=== PATIENT | male | born 1940 | race Two or more races ===

== ENCOUNTER 2024-11-19 08:05 | Emergency (ER) | payer OTHER ==
--- OUTSIDE RECORDS SUMMARY | 2024-11-19 08:09 | XMS REPORT | Continuity of Care Document ---
Author Name Unknown Address [address] [place] [address] [address] [place] [address] [facility] Address [address] [place] [address] Care Team Providers Care Commercial Housekeeper Name Role Phone WADE BAPTISTE Attending Clinician Un available ANGELICA_PFAlfreda_Tonny_Wu Attending Clinician Unavailable [email or web address] Admitting Clinician Unavailable Payers Payer Name Policy Type Policy Number Effective Date Expirati on Date Source [employer] (MEDICARE REPLACEMENT PPO) [id number] 2022 00:00:00 Social History Smoking Status Start Date Stop Date Source Never Smoker [facility] Medications Ordered Medication Name Filled Medication Name Start Date Stop Date Current Medication? Ordering Clinician Indication Dosage Frequency Signature (SIG) Comments Components Source azithromyci n 250 mg tablet TAKE 2 TABLETS (500 MG) BY ORAL ROUTE ONCE DAILY FOR 1 DAY THEN 1 TABLET (250 MG) BY ORAL ROUTE ONCE DAILY FOR 4 DAYS azithromyci n 250 mg tablet TAKE 2 TABLETS (500 MG) BY ORAL ROUTE ONCE DAILY FOR 1 DAY THEN 1 TABLET (250 MG) BY ORAL ROUTE ONCE DAILY FOR 4 DAYS No azithromyc in 250 mg tablet TAKE 2 TABLETS (500 MG) BY ORAL ROUTE ONCE DAILY FOR 1 DAY THEN 1 TABLET (250 MG) BY ORAL ROUTE ONCE DAILY FOR 4 DAYS [facility] finasteride 1 mg tablet Take 1 tablet every day by oral route. finasteride 1 mg tablet Take 1 tablet every day by oral route. No 1 Q1D finasterid e 1 mg tablet Take 1 tablet every day by oral route. [facility] finasteride 5 mg tablet Take 1 tablet every day by oral route. finasteride 5 mg tablet Take 1 tablet every day by oral route. No 1 Q1D finasterid e 5 mg tablet Take 1 tablet every day by oral route. [facility] fluticasone 113 mcg-salmete rol 14 mcg/actuati on breath activated powdr Inhale 1 puff twice a day by inhalation route. fluticasone 113 mcg-salmete rol 14 mcg/actuati on breath activated powdr Inhale 1 puff twice a day by inhalation route. No 1puff(s ) BID fluticason e 113 mcg-salmet pretty 14 mcg/actuat ion breath activated powdr Inhale 1 puff twice a day by inhalation route. [facility] losartan 50 mg tablet Take 1 tablet every day by oral route. losartan 50 mg tablet Take 1 tablet every day by oral route. No 1 Q1D losartan 50 mg tablet Take 1 tablet every day by oral route. [facility] tamsulosin 0.4 mg capsule Take 1 capsule every day by oral route. tamsulosin 0.4 mg capsule Take 1 capsule every day by oral route. No 1capsul e(s) Q1D tamsulosin 0.4 mg capsule Take 1 capsule every day by oral route. [facility] Wixela Inhub 250 mcg-50 mcg/dose powder for inhalation 1 inhalation every 12 hours Wixela Inhub 250 mcg-50 mcg/dose powder for inhalation 1 inhalation every 12 hours No Wixela Inhub 250 mcg-50 mcg/dose powder for inhalation 1 inhalation every 12 hours [facility] Losartan Potassium Losartan Potassium Yes Odette Andra 1 tablet [facility] Tamsulosin HCl Tamsulosin HCl 08-18 00:00 :00 No Odette Harvey 1 capsule [facility] Vital Signs Vital Name Observation Time Observation Value Comments S ource Body Weight 2023-06-24 00:00:00 2256 [oz_av] [facility] BP Diastolic 2023-06-24 00:00:00 84 mm[Hg] [facility] BMI (Body Mass Index) 2023-06-24 00:00:00 22.1 kg/m2 [facility] BP Systolic 2023-06-24 00:00:00 118 mm[Hg] [facility] Height 2023-06-24 00:00:00 67 [in_i] [facility] Procedures Procedure Date / Time Performed Performing Clinicia n Source Hernia Repair 2022-01-13 00:00:00 [facility] Cataract Surgery [facility] Appendectomy [facility] Encounters Start Date/Time End Date/Time Encounter Type Admission Type Attending Clinicians Care Facility Care Department Encounter ID Source 2021-03-05 10:59:47 Outpatient PAULA BAPTISTE I [facility] [id number] [facility] 2023-06-24 00:00:00 2023-06-24 00:00:00 Natalie Lancaster MD: [address] [place] [address] [address], [address], [place] [address] , Ph. [facility] [address] Office* [id number] [facility] 2022-11-02 13:57:57 2022-11-02 13:57:57 Outpatient [facility] [id number] Marko Chong 2019-02-27 08:35:00 2019-02-27 08:35:00 [facility] [id number] [facility] 2019-02-20 10:00:00 2019-02-20 10:00:00 [facility] [id number] [facility] 2019-01-19 14:30:00 2019-01-19 14:30:00 [facility] [id number] [facility]
[2024-11-19 08:48] LABS: Absolute Lymphocytes (CBC) 2.2 K/uL (0.7-4.9); Hematocrit 41.7 % (39.6-49.0); Hemoglobin 14.0 g/dL (13.6-17.9); MCH 30.3 pg (27.0-35.0); MCHC 33.6 g/dL (32.0-36.0); MCV 90.2 fL (80-100); MPV 8.6 fL (7.6-11.3); Nucleated RBC Absolute Count 0.0 (0-0); Nucleated Red Blood Cells % 0.1 % (0-0); RBC Red Blood Cell Count 4.62 M/uL (4.33-5.43); White Blood Count 7.60 thou/uL (4.3-10.9)
[2024-11-19 08:49] LABS: PT Prothrombin Time 13.1 SECONDS (10-13.0); Protime INR 1.16
[2024-11-19] MEDS ORDERED: NA CHLORIDE 0.9% 500 ML ONE (09:09)
[2024-11-19 09:10] LABS: ALT/SGPT 18 U/L (16-61); Albumin 3.1 g/dL (3.4-5.0); Albumin/Globulin Ratio 0.9 (1.1-1.8); Alkaline Phosphatase 59 U/L (45-117); Anion Gap 9.5 mEq/L (5.0-15.0); BUN Blood Urea Nitrogen 18 mg/dL (7-18); Globulin 3.3 g/dL (2.3-3.5); Glucose Level 110 mg/dL (74-106); NT PRO-BNP 82 pg/mL (<450)
[2024-11-19 09:11] LABS: AST/SGOT 26 U/L (15-37); Bilirubin Indirect, Calculated 0.4 mg/dL (0.2-0.8); Potassium 3.5 mEq/L (3.5-5.1)
--- NOTE | 2024-11-19 09:11 | RAD REPORT ---
EXAMINATION: ONE VIEW CHEST XR CLINICAL INDICATION: CHEST PAIN TECHNIQUE: Frontal chest projection is submitted. Examination is limited by patient positioning and t echnique. COMPARISON: 08/05/2018 FINDINGS: The lungs are well inflated and clear. The heart is mildly enlarged in size. No displaced fractures i dentified. IMPRESSION: No acute intrathoracic abnormalities.
[2024-11-19 09:25] LABS: Troponin High Sensitivity 181.7 pg/mL (<58.9)
[2024-11-19] MEDS ORDERED: FENTANYL CITR 100 MCG/2 ML ONE (09:41)
[2024-11-19] MEDS ORDERED: NOREPINEPHRINE BITARTRATE/D5W 4 MG/250 ML BAG IV ONE (10:03)
--- NOTE | 2024-11-19 10:16 | RAD REPORT ---
EXAM: CTA of the chest, abdomen and pelvis HISTORY: Chest pain and back pain chest pain radiates to back COMPARISON: None TECHNIQUE: Multiple contiguous axial images were obtained a CTA of the chest and abdomen with contras t per aortic dissection protocol. This involves 3D reconstructions, MIPs, volume rendered images and/or shaded surface rendering. One or more of the following dose reduction techniques were used: Au tomated exposure control, adjustment of the mA and/or kV according to patient size, and/or iterative reconstruction. Unless otherwise specified, incidental findings do not require dedicated im aging follow-up. Sagittal and coronal 3-D MIP reformats were performed. FINDINGS: PULMONARY ARTERIES: Normal in caliber without filling defects to suggest pulmonary emboli. ASCENDING THORACIC AORTA: There is aneurysmal dilatation of the thoracic aorta with thoracic aortic acute dissection present involving the ascending and descending thoracic aorta. This extends to involve the root of the aorta with dissection extending into the great vessels resulting in the sever e narrowing of the right common carotid artery. DESCENDING THORACIC AORTA: Dilated with acute dissection present. ABDOMINAL AORTA: Continued dissection is present to the level of the bifurcation with dissection of t he left common iliac artery. Significant flow reduction is present in both internal iliac arteries. CELIAC TRUNK: Patent. SMA: Patent KAMILA: Patent RENAL ARTERIES: There is truncated appearance to the left renal artery with no flow seen distal to th e ostium due to the aortic dissection. MEDIASTINUM: Hemopericardium with cardiac tamponade present with high density blood product within th e pericardium measuring up to 4 cm. LUNGS: Emphysematous changes are present with mild dependent pulmonary edema. PLEURAL SPACE: No pleural effusion or pneumothorax. LIVER: Contrast is seen pooling in the dependent portion of the right lobe liver as well as a vena ca va indicating lack of cardiac output.. SPLEEN: Unremarkable. PANCREAS: Unremarkable. KIDNEYS: Unremarkable. ADRENALS: Unremarkable. BOWEL: Unremarkable. RETROPERITONEUM: No lymphadenopathy. BONES: Degenerative changes in the spine. ADDITIONAL FINDINGS: Prominent prostate gland projecting at bladder base. 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 Hemopericardium with cardiac tampona de present with lack of cardiac output suspected. Left renal artery shows no appreciable flow. 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 The findings were communicated with Mariusz Gandara MD at 11/19/2024 10:10 AM by telephone.
--- NOTE | 2024-11-19 10:49 | EDPHYS ---
Physician Documentation [facility] Name: Salena Pena Age: 84 yrs Sex: Male : 1940 Arrival Date: 11/19/2024 Time: 08:05 Bed 8 Private MD: ED Physician Mariusz Gandara HPI: 11/19 08:21 This 84 yrs old [place] Male presents to ER via Unassigned with complaints of Back rn Pain, Chest Pain. 08:28 Patient reports chest pain that radiates to the back, started this morning, shortly rn after carrying 2 jugs of water and loading washing machine. Patient reports feels tightening in his back, upper back. EMS reports initially blood pressure was a little bit low, also noted low oxygenation. EMS administered 2 doses of fentanyl with some improvement in the pain and administered 600 cc bolus with improvement of blood pressure. Patient denies any abdominal pain. No recent illness. No fever or chills. No cough.. Historical: - Allergies: 08:25 No Known Allergies; ph - Home Meds: 08:25 losartan oral [Active]; ph - PMHx: 08:25 Hypertensive disorder; ph - Immunization history:: Adult Immunizations unknown. - Infectious Disease History:: Denies. - Social history:: Smoking status: Patient denies any tobacco usage or history of. - Family history:: not pertinent. - Hospitalizations: : No recent hospitalization is reported. ROS: 08:28 Constitutional: Negative for fever, chills, and weight loss, Neck: Negative for injury, rn pain, and swelling, Cardiovascular: Positive for chest pain Respiratory: Negative for shortness of breath, cough, wheezing, and pleuritic chest pain, Abdomen/GI: Negative for abdominal pain, nausea, vomiting, diarrhea, and constipation, Back: Positive for back pain MS/Extremity: Negative for injury and deformity, Skin: Negative for injury, rash, and discoloration, Neuro: Negative for headache, weakness, numbness, tingling, and seizure, Exam: 08:28 Constitutional: This is a well developed, well nourished patient who is awake, alert, rn and in no acute distress. Head/Face: Normocephalic, atraumatic. Cardiovascular: Regular rate and rhythm. No pulse deficits. Respiratory: No increased work of breathing, no retractions or nasal flaring. Abdomen/GI: Soft, nontender, nondistended, no ecchymosis MS/ Extremity: Pulses equal, no cyanosis. Neurovascular intact. Full, normal range of motion. Equal circumference. Neuro: Awake and alert, GCS 15 Vital Signs: 08:21 BP 110 / 78; Pulse 72; Resp 16; Temp 97.5; Pulse Ox 94% on 2 lpm NC; Weight 76.2 kg; ph Height 5 ft. 8 in. ; 08:30 BP 91 / 56; Pulse 69; Resp 13; Pulse Ox 95% on 2 lpm NC; ph 09:00 BP 71 / 56; Pulse 75; Resp 15; Pulse Ox 94% on 2 lpm NC; ph 09:15 BP 92 / 64; Pulse 91; Resp 15; Pulse Ox 97% on 2 lpm NC; ph 09:25 BP 103 / 83; Pulse 88; Resp 20; Pulse Ox 95% on 2 lpm NC; ph 09:45 BP 93 / 54; Pulse 91; Resp 18; Pulse Ox 97% on 15 lpm Non-rebreather mask; ph 08:21 Body Mass Index 25.54 (76.20 kg, 172.72 cm) ph Procedures: 10:43 Intubation: Ventilated with 100% NRB prior to procedure. O2 saturation prior to television journalist was 70 %. Intubated orally using # 3 Marissa blade with 7.5 mm ETT. was successful on first attempt. Cricoid pressure applied during procedure. Tube secured with ETT wheeler at right side of mouth measured 23 cm at teeth. Placement verified by auscultating bilateral breath sounds, Patient tolerated well. Performed Needle pericardiocentesis. Patient cleansed with Betadine, ultrasound guidance utilized, identified pericardial effusion and used a 18-gauge 3-1/2 spinal needle with 30 cc syringe, space identified and aspirated 60 cc of dark blood with improvement of effusion noted following procedure.. MDM: 08:11 Medical Screening Exam initiated rn 09:27 ED course: Aspirin given by EMS, full dose prior to arrival. rn 09:42 ED course: Patient with elevated troponin, still ongoing chest pain, was initially rn helped with fentanyl, will redose fentanyl. Still high possibility of aortic etiology such as dissection given chest pain and back pain. Chest x-ray images negative for pneumonia pneumothorax or pulmonary edema per my interpretation. Cannot anticoagulate for possible NSTEMI until aorta is cleared. Anticipate transfer given no Disaster Director availability here, elevated troponin and worsening chest pain.. 10:43 Differential diagnosis: acute myocardial infarction, acute pericarditis, pulmonary rn embolus, thoracic aortic disection, unstable angina. The patient was not given aspirin in the Emergency Department. Administered by EMS. Data reviewed: vital signs, nurses notes. Data reviewed: lab test result(s), EKG, radiologic studies, CT scan, plain films, and as a result, I will admit patient. Independent interpretation of the following test(s) in the Emergency Department X-Ray: My interpretation is Chest x-ray images show enlarged heart but no pneumonia or pneumothorax per my interpretation. Care significantly affected by the following chronic conditions: Hypertension. Counseling: I had a detailed discussion with the patient and/or guardian regarding the historical points, exam findings, and any diagnostic results supporting the discharge/admit diagnosis, lab results, radiology results, the need for further work-up and treatment in the hospital, the need to transfer to another facility. ED course: Immediately upon return from CAT scan patient started to become bradycardic, ineffective respirations, intubated immediately without medication. While intubating I got a call from radiology reporting severe and total aortic dissection with hemopericardium and cardiac tamponade with evidence of lack of flow. Chest compressions started, I performed bedside emergent pericardiocentesis with removal of 60 cc of dark blood. Patient achieved ROSC after approximately 5 minutes of continued compressions and epinephrine following pericardiocentesis but briefly decompensated again into asystole and never regained pulse after that. Family updated as well as daughter who is a trauma surgeon at [employer] [facility] [employer] [facility] [employer] [facility] [employer].. 11/19 08:11 Order name: Basic Metabolic Panel; Complete Time: rn 11/19 08:11 Order name: CBC with Diff; Complete Time: : rn 11/19 08:11 Order name: LFT's; Complete Time: rn 11/19 08:11 Order name: NT PRO-BNP; Complete Time: rn 11/19 08:11 Order name: PT-INR; Complete Time: : rn 11/19 08:11 Order name: Troponin HS; Complete Time: rn 11/19 08:11 Order name: XRAY Chest (1 view); Complete Time: : rn 11/19 08:11 Order name: CT Aorta for Dissection; Complete Time: 10:22 rn 11/19 08:11 Order name: EKG; Complete Time: 08: rn 11/19 08:11 Order name: Cardiac monitoring; Complete Time: 08:27 rn 11/19 08:11 Order name: EKG - Nurse/Tech; Complete Time: 08:37 rn 11/19 08:11 Order name: IV Saline Lock; Complete Time: 08: rn 11/19 08:11 Order name: Labs collected and sent; Complete Time: 08: rn 11/19 08:11 Order name: O2 Per Protocol; Complete Time: 08: rn 11/19 08:11 Order name: O2 Sat Monitoring; Complete Time: 08: rn Administered Medications: 08:29 Drug: NS 0.9% IV 500 ml 500 ml IV at 1 bolus once; to be given as a bolus over 30 bp minutes Volume: 500 ml; Route: IV; Rate: 1 bolus; Site: left forearm; 10:58 Follow up: IV Status: Completed infusion bp 09:15 Drug: NS 0.9% IV 500 ml 500 ml IV at 1 bolus once; to be given as a bolus over 30 ph minutes Volume: 500 ml; Route: IV; Rate: 1 bolus; Site: left forearm; 10:58 Follow up: IV Status: Completed infusion bp 09:45 Drug: fentaNYL (PF) IVP 50 mcg IVP once Route: IVP; Site: left forearm; bp 10:59 Follow up: Response: No adverse reaction bp 10:00 Drug: EPINEPHrine 0.1mg/mL 1:10,000 1 mg IVP once Route: IVP; Site: left forearm; ph 10:05 Follow up: Response: Cardiac rhythm is unchanged ph 10:03 Drug: EPINEPHrine 0.1mg/mL 1:10,000 1 mg IVP once Route: IVP; Site: left forearm; ph 11:29 Follow up: Response: No adverse reaction; Cardiac rhythm is unchanged ph 10:10 Drug: EPINEPHrine 0.1mg/mL 1:10,000 1 mg IVP once Route: IVP; Site: left forearm; ph 11:30 Follow up: Response: No adverse reaction; Cardiac rhythm is unchanged ph 10:13 Drug: EPINEPHrine 0.1mg/mL 1:10,000 1 mg IVP once Route: IVP; Site: right jugular; ph 11:31 Follow up: Response: No adverse reaction; Cardiac rhythm is unchanged ph 10:15 Drug: EPINEPHrine 0.1mg/mL 1:10,000 1 mg IVP once Route: IVP; Site: right jugular; ph 11:32 Follow up: Response: No adverse reaction; Cardiac rhythm is unchanged ph 10:18 Drug: EPINEPHrine 0.1mg/mL 1:10,000 1 mg IVP once Route: IVP; Site: right jugular; ph 10:20 Follow up: Response: No adverse reaction; Cardiac rhythm changed ph 10:24 Drug: EPINEPHrine 0.1mg/mL 1:10,000 1 mg IVP once Route: IVP; Site: right jugular; ph 11:33 Follow up: Response: No adverse reaction; Cardiac rhythm is unchanged ph 10:27 Drug: EPINEPHrine 0.1mg/mL 1:10,000 1 mg IVP once Route: IVP; Site: right jugular; ph 11:34 Follow up: Response: No adverse reaction; Cardiac rhythm is unchanged ph 10:30 Drug: EPINEPHrine 0.1mg/mL 1:10,000 1 mg IVP once Route: IVP; Site: right jugular; ph 11:34 Follow up: Response: No adverse reaction ph 10:31 Drug: Sodium Bicarbonate 1 amp IVP once; (50 mL); equals 50 mEq Route: IVP; Site: right jugular; 11:35 Follow up: Response: No adverse reaction; Cardiac rhythm is unchanged ph 10:33 Drug: EPINEPHrine 0.1mg/mL 1:10,000 1 mg IVP once Route: IVP; Site: right jugular; ph 11:35 Follow up: Response: No adverse reaction; Cardiac rhythm is unchanged ph 10:58 CANCELLED (Patient ): epinephrine (pf)0.01 mcg/kg/min IV at Titrate See bp Administration Instructions; Standard concentration 4 mg / 250 mL D5W; Recommended max rate 2 mcg/kg/min; Titrate 0.01 mcg/kg/min as often as every 3 minutes to achieve goal [see titration policy]; Goal parameter MAP greater than 65 mmHg. Disposition: 10:47 Critical Care:. . rn Disposition Summary: 11/19/24 10:49 Patient Notes: Location: Home rn Pronouncing Physician: Mariusz Gandara rn Time of : 10:35 11/19/2024 rn Diagnosis - Thoracoabdominal aortic aneurysm, ruptured rn - Cardiac Tamponade learning and development officer time excluding procedures: 10:47 Critical care time: Bedside Care: 35 minutes, Family Intervention: 5 minutes. Total rn time: 40 minutes Signatures: Dispatcher [employer] EDMS Mariusz Gandara MD MD rn Hall, Patricia, RN RN ph Peltier, Brian, RN RN bp Corrections: (The following items were deleted from the chart) 10:56 10:30 Chest Single View ordered. EDAL EDMS 10:58 10:28 EPINEPHrine (PF) IV 0.01 mcg/kg/min IV at Titrate See Administration bp Instructions; Standard concentration 4 mg / 250 mL D5W; Recommended max rate 2 mcg/kg/min; Titrate 0.01 mcg/kg/min as often as every 3 minutes to achieve goal [see titration policy]; Goal parameter MAP greater than 65 mmHg. ordered. bp
--- NOTE | 2024-11-19 10:49 | ER ---
Nurse's Notes [facility] [place] Name: Salena Pena Age: 84 yrs Sex: Male : 1940 Arrival Date: 11/19/2024 Time: 08:05 Bed 8 Private MD: Diagnosis: Thoracoabdominal aortic aneurysm, ruptured;Cardiac Tamponade Presentation: 11/19 08:21 Chief complaint: EMS states: C/O back pain that "feels like the muscles are having a ph seizure", also reports midsternal chest pain and difficulty breathing. Received 324 ASA, 4 mg Zofran, 50 mcg Fentanyl x 2, reports that chest pain and SOB have improved, continues to c/o back pain. Coronavirus screen: At this time, the client does not indicate any symptoms associated with coronavirus-19. Ebola Screen: No symptoms or risks identified at this time. Initial Sepsis Screen: Does the patient meet any 2 criteria? No. Patient's initial sepsis screen is negative. Does the patient have a suspected source of infection? No. Patient's initial sepsis screen is negative. Risk Assessment: Do you want to hurt yourself or someone else? Patient reports no desire to harm self or others. Onset of symptoms was November 19, 2024. 08:21 Method Of Arrival: EMS: [facility] 08:21 Acuity: DARYL 2 ph Triage Assessment: 08:26 General: Appears in no apparent distress. uncomfortable, Behavior is calm, cooperative. ph Pain: Complains of pain in left subscapular area and right subscapular area. Neuro: Level of Consciousness is awake, alert, obeys commands, Oriented to person, place, time, situation. Cardiovascular: Capillary refill < 3 seconds in bilateral fingers Patient's skin is warm and dry. Respiratory: Airway is patent Respiratory effort is even, unlabored, Respiratory pattern is regular, symmetrical. Derm: Skin is pink, warm \\T\\ dry. Musculoskeletal: Range of motion: intact in all extremities. Historical: - Allergies: 08:25 No Known Allergies; ph - Home Meds: 08:25 losartan oral [Active]; ph - PMHx: 08:25 Hypertensive disorder; ph - Immunization history:: Adult Immunizations unknown. - Infectious Disease History:: Denies. - Social history:: Smoking status: Patient denies any tobacco usage or history of. - Family history:: not pertinent. - Hospitalizations: : No recent hospitalization is reported. Assessment: 08:55 General: SEE TRIAGE ASSESSMENT. ph 09:00 Reassessment: Pt hypotensive at 71/56, c/o increasing chest pain and SOB, ERP notified ph and additional fluid bolus ordered, see MAR. 09:25 Reassessment: BP improved to 103/83 after NS bolus. ph 09:40 Reassessment: technical sme and RN at bedside, pt continues to c/o chest and back pain and ph SOB, appears pale, diaphoretic, and restless, ERP notified and at bedside, pt placed on NRB mask and given Fentanyl IVP per ERP, pt taken to CT accompanied by this nurse. 09:55 Reassessment: Upon returning to exam room after CT scan pt became unresponsive w/ ph agonal respirations, weak central pulses, staff assist requested. 09:59 Reassessment: No palpable central pulses, code blue called overhead, Dr Gandara at bedside for intubation. 10:03 Cardiovascular: Rhythm is asystole. ph 10:05 Cardiovascular: Rhythm is asystole. ph 10:10 Reassessment: Dr Gandara at bedside to preform cardiothoracic tamponade aspiration, 60 cc ph blood aspirated. 10:15 Cardiovascular: Rhythm is PEA. ph 10:17 Cardiovascular: Rhythm is PEA. ph 10:20 Reassessment: Organized cardiac rhythm w/ palpable central pulses. ph 10:24 Reassessment: Hr decreasing on bedside monitor, no palpable pulse, code blue called ph overhead. 10:28 Cardiovascular: Rhythm is PEA. ph 10:32 Cardiovascular: Rhythm is asystole. ph 10:35 Cardiovascular: Rhythm is TOD called \\T\\ [address] Gandara. ph Vital Signs: 08:21 BP 110 / 78; Pulse 72; Resp 16; Temp 97.5; Pulse Ox 94% on 2 lpm NC; Weight 76.2 kg; ph Height 5 ft. 8 in. ; 08:30 BP 91 / 56; Pulse 69; Resp 13; Pulse Ox 95% on 2 lpm NC; ph 09:00 BP 71 / 56; Pulse 75; Resp 15; Pulse Ox 94% on 2 lpm NC; ph 09:15 BP 92 / 64; Pulse 91; Resp 15; Pulse Ox 97% on 2 lpm NC; ph 09:25 BP 103 / 83; Pulse 88; Resp 20; Pulse Ox 95% on 2 lpm NC; ph 09:45 BP 93 / 54; Pulse 91; Resp 18; Pulse Ox 97% on 15 lpm Non-rebreather mask; ph 08:21 Body Mass Index 25.54 (76.20 kg, 172.72 cm) ph ED Course: 08:10 Patient arrived in ED. eb 08:11 Mariusz Gandara MD is Attending Physician. rn 08:21 Jose Morales RN is Primary Nurse. bp 08:25 Triage completed. ph 08:25 Patient has correct armband on for positive identification. Bed in low position. Call ph light in reach. Side rails up X2. 08:25 Initial lab(s) drawn, by ED staff, sent to lab. EKG done, by ED staff, reviewed by jaden Gandara MD. Maintain EMS IV. Dressing intact. Good blood return noted. Site clean \\T\\ dry. Gauge \\T\\ site: 18 LFA. Flushed with 10 mL NS. 08:26 Arm band placed on Patient placed in an exam room, on a stretcher, on oxygen, on ph compliance monitor, on pulse oximetry. 08:58 XRAY Chest (1 view) In Process Unspecified. EDMS 09:27 Notified ED physician of a critical lab result(s). troponin 181.7. ll1 09:58 CT Aorta for Dissection In Process Unspecified. EDMS 10:05 Assisted provider with intubation using 7.5 mm ETT via oral route. ET tube secured at ph 23cm at the lips. Set up intubation tray. Intubated by Mariusz Gandara MD Placement verified by CO2 detector w/ + color change, auscultating bilateral breath sounds. 10:10 Inserted saline lock: 18 gauge in right EJ, using aseptic technique. Flushed with 10 mL ph NS. 10:48 Mariusz Gandara MD is Pronouncing Provider. rn Administered Medications: 08:29 Drug: NS 0.9% IV 500 ml 500 ml IV at 1 bolus once; to be given as a bolus over 30 bp minutes Volume: 500 ml; Route: IV; Rate: 1 bolus; Site: left forearm; 10:58 Follow up: IV Status: Completed infusion bp 09:15 Drug: NS 0.9% IV 500 ml 500 ml IV at 1 bolus once; to be given as a bolus over 30 ph minutes Volume: 500 ml; Route: IV; Rate: 1 bolus; Site: left forearm; 10:58 Follow up: IV Status: Completed infusion bp 09:45 Drug: fentaNYL (PF) IVP 50 mcg IVP once Route: IVP; Site: left forearm; bp 10:59 Follow up: Response: No adverse reaction bp 10:00 Drug: EPINEPHrine 0.1mg/mL 1:10,000 1 mg IVP once Route: IVP; Site: left forearm; ph 10:05 Follow up: Response: Cardiac rhythm is unchanged ph 10:03 Drug: EPINEPHrine 0.1mg/mL 1:10,000 1 mg IVP once Route: IVP; Site: left forearm; ph 11:29 Follow up: Response: No adverse reaction; Cardiac rhythm is unchanged ph 10:10 Drug: EPINEPHrine 0.1mg/mL 1:10,000 1 mg IVP once Route: IVP; Site: left forearm; ph 11:30 Follow up: Response: No adverse reaction; Cardiac rhythm is unchanged ph 10:13 Drug: EPINEPHrine 0.1mg/mL 1:10,000 1 mg IVP once Route: IVP; Site: right jugular; ph 11:31 Follow up: Response: No adverse reaction; Cardiac rhythm is unchanged ph 10:15 Drug: EPINEPHrine 0.1mg/mL 1:10,000 1 mg IVP once Route: IVP; Site: right jugular; ph 11:32 Follow up: Response: No adverse reaction; Cardiac rhythm is unchanged ph 10:18 Drug: EPINEPHrine 0.1mg/mL 1:10,000 1 mg IVP once Route: IVP; Site: right jugular; ph 10:20 Follow up: Response: No adverse reaction; Cardiac rhythm changed ph 10:24 Drug: EPINEPHrine 0.1mg/mL 1:10,000 1 mg IVP once Route: IVP; Site: right jugular; ph 11:33 Follow up: Response: No adverse reaction; Cardiac rhythm is unchanged ph 10:27 Drug: EPINEPHrine 0.1mg/mL 1:10,000 1 mg IVP once Route: IVP; Site: right jugular; ph 11:34 Follow up: Response: No adverse reaction; Cardiac rhythm is unchanged ph 10:30 Drug: EPINEPHrine 0.1mg/mL 1:10,000 1 mg IVP once Route: IVP; Site: right jugular; ph 11:34 Follow up: Response: No adverse reaction ph 10:31 Drug: Sodium Bicarbonate 1 amp IVP once; (50 mL); equals 50 mEq Route: IVP; Site: right ph jugular; 11:35 Follow up: Response: No adverse reaction; Cardiac rhythm is unchanged ph 10:33 Drug: EPINEPHrine 0.1mg/mL 1:10,000 1 mg IVP once Route: IVP; Site: right jugular; ph 11:35 Follow up: Response: No adverse reaction; Cardiac rhythm is unchanged ph 10:58 CANCELLED (Patient ): epinephrine (pf)0.01 mcg/kg/min IV at Titrate See bp Administration Instructions; Standard concentration 4 mg / 250 mL D5W; Recommended max rate 2 mcg/kg/min; Titrate 0.01 mcg/kg/min as often as every 3 minutes to achieve goal [see titration policy]; Goal parameter MAP greater than 65 mmHg. Outcome: 14:27 Patient left the ED. ll1 Signatures: Dispatcher [employer] EDMS Mariusz Gandara MD MD rn Hall, Patricia, RN RN ph Peltier, Brian, RN RN bp Botello, Elizabeth eb Lewis, Lynsay, RN RN ll1
[2024-11-19 20:39] VITALS: TEMP 97.5
[2024-11-19 20:48] VITALS: BP 93/54; O2SAT 97
== END 2024-11-19 14:27 | disposition expired ==
LOC: ER 08:05
DX: I71.5 Thoracoabdominal aortic aneurysm, ruptured (principal); I31.4 Cardiac tamponade; I10 Essential (primary) hypertension
CPT/HCPCS: 93005; 85025; 80048; 36415; 85610; 80076; 84484; 83880; 71275; 74175; 71045; 31500; 99291; 92950 ×2; Q9967; J3010; J7040; J0169; J7060